=== PATIENT | male | born 1955 | race Caucasian/White ===

== ENCOUNTER → 2018-04-05 09:23 | Outpatient (REF) | payer MEDICAID, SELFPAY ==
[2018-04-06 00:09] LABS: Anion Gap 11.6 mmol/L (3-11); BUN 10 mg/dL (7-18); CO2 26.4 mmol/L (21.0-32.0); CREATININE 0.83 mg/dL (0.70-1.30); Calcium 8.8 mg/dL (8.5-10.1); Chloride 103 mmol/L (98-107); Glucose 106 mg/dL (70-100); Potassium 4.6 mmol/L (3.5-5.1); Sodium 141 mmol/L (136-145)
[2018-04-07 08:50] LABS: PSA, Screening 3.4 ng/ml (0-4.5)
== END ==
LOC: NCHCN 09:23
PROVIDERS: PCP Specialist/Technologist Athletic Trainer; Visit Provider Specialist/Technologist Athletic Trainer
DX: Z12.5 Encounter for screening for malignant neoplasm of prostate (principal); R97.20 Elevated prostate specific antigen [PSA]; I10 Essential (primary) hypertension
CPT/HCPCS: 80048; 84153

== ENCOUNTER 2018-04-11 02:44 | Emergency (ER) | payer MEDICAID, SELFPAY ==
[2018-04-11 02:48] VITALS: BP 132/80; PULSE 79; RESP 18; TEMP 36.6; O2SAT 98
--- NOTE | 2018-04-11 03:07 | ED.GENADUL_ITS ---
Disposition Clinical Impression: Acute radial nerve palsy of right upper extremity Disposition: HOME Condition: Good Instructions: Radial Nerve Palsy (ED) Additional Instructions: Wear the wrist splint to help maintain hand in neutral position. Follow-up with primary care this week. You will likely benefit from physical therapy. Return to ED if any progressive neurologic changes, headaches, other concerns. Referrals: Flex Elizalde [Primary Care Provider] - Medical Decision Making - Medical Decision Making Patient appears to have a right radial nerve palsy likely from compression of the radial nerve at the level of the upper arm when he was sleeping. He has right wrist drop and right hand/finger extensor weakness. Flexor components are normal. Bicep and tricep is normal. There is no sensory deficits. Patient will be placed in a wrist splint to help maintain wrist in neutral position. Referred to primary care and neurology for follow-up. Will likely need physical therapy but this should get better over time and is likely related to compression of the radial nerve. History of Present Illness - General Chief complaint: Orthopedic Stated complaint: HAND PROB Time Seen by Provider: 04/11/18 03:04 Source: patient Mode of arrival: ambulatory Limitations: no limitations - History of Present Illness Initial comments: Patient presents to ED with inability to use his right hand normally. He went to bed around 10 PM. He woke up and realized that he had been lying on his arm. He has not been able to use his right hand normally since waking up. He does not have any numbness or tingling. He has no other associated neurological symptoms. He is having no pain. He is right-hand dominant. He came in for evaluation thinking he might be having a stroke. - Related Data Lisinopril 5 mg PO DAILY 01/03/15 Metformin HCl [Metformin HCl ER] 1 tab PO DAILY 04/11/18 Allergies Allergy/AdvReac Type Severity Reaction Status Date / Time No Known Allergies Allergy Unverified 04/11/18 02:48 Review of Systems Constitutional: denies: chills, diaphoresis, fever Eyes: denies: vision change ENT: denies: congestion Respiratory: denies: cough, shortness of breath Cardiovascular: denies: chest pain Gastrointestinal: denies: abdominal pain, nausea, vomiting Genitourinary: denies: dysuria, hematuria Musculoskeletal: denies: back pain, arthralgia, myalgia Skin: denies: rash Neurological: weakness. denies: headache, numbness, paresthesias, abnormal gait Past Medical History - Past Medical History Medical history: diabetes, hypertension Surgical history: no surgical history - Social History Smoking status: former smoker General Exam - General Limitations: no limitations General appearance: alert, in no apparent distress - Head Head exam: Present: atraumatic, normocephalic - Eye Eye exam: Present: PERRL, EOMI, conjunctival injection - Extremities Exam Extremities exam: Present: normal inspection. Absent: tenderness, calf tenderness - Neurological Exam Neurological exam: Present: alert, oriented X3, CN II-XII intact, normal gait, motor sensory deficit (Right wrist drop with associated right hand/fingers extensor weakness. 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 Wrist flexion is normal. Bicep and tricep strength is normal. Left arm is normal. Lower extremities normal. No sensory deficits or changes.) - Psychiatric Psychiatric exam: Present: normal affect, normal mood - Skin Skin exam: Present: warm, dry, intact. Absent: rash Course Vital Signs - 24 hr 04/11/18 02:48 Temperature 97.9 F Pulse 79 Respiratory 18 Rate Blood Pressure 132/80 Pulse Oximetry 98
== END 2018-04-11 03:20 | disposition home or self-care (01) ==
PROVIDERS: Emergency Provider Emergency Medicine; PCP Specialist/Technologist Athletic Trainer
DX: G56.31 Lesion of radial nerve, right upper limb (principal); E11.9 Type 2 diabetes mellitus without complications; Z79.84 Long term (current) use of oral hypoglycemic drugs; I10 Essential (primary) hypertension
CPT/HCPCS: 29125; 99283; L3908

== ENCOUNTER 2018-07-13 09:01 | Outpatient (REF) | payer MEDICAID, SELFPAY ==
[2018-07-13 22:43] LABS: Cholesterol 154 mg/dL (50-200); HDL Cholesterol 38 mg/dL (40-60); LDL CHOLESTEROL 109 mg/dL (<100); Triglyceride 61 mg/dL (30-150)
== END 2018-07-13 09:21 ==
LOC: NCHCN 09:01
PROVIDERS: PCP Specialist/Technologist Athletic Trainer; Visit Provider Specialist/Technologist Athletic Trainer
DX: R73.09 Other abnormal glucose (principal); Z00.00 Encounter for general adult medical examination without abnormal findings
CPT/HCPCS: 80061; 83721

== ENCOUNTER 2019-09-13 10:50 | Outpatient (REF) | payer MEDICAID, SELFPAY ==
[2019-09-13 22:24] LABS: BUN 16 mg/dL (7-18); CREATININE 0.78 mg/dL (0.70-1.30); Calcium 9.3 mg/dL (8.5-10.1); Calculated LDL 109 mg/dL; Chloride 106 mmol/L (98-107); Cholesterol 161 mg/dL (<200); Glucose 114 mg/dL (74-106); HDL Cholesterol 41 mg/dL (40-60); Potassium 4.8 mmol/L (3.5-5.1); Sodium 143 mmol/L (136-145); Triglyceride 57 mg/dL (<150)
[2019-09-17 10:22] LABS: PSA, Screening 3.5 ng/mL (0.0-4.5)
== END 2019-09-13 11:10 ==
LOC: NCHCN 10:50
PROVIDERS: PCP Specialist/Technologist Athletic Trainer; Visit Provider Nurse Practitioner Family
DX: I10 Essential (primary) hypertension (principal); R73.09 Other abnormal glucose; Z12.5 Encounter for screening for malignant neoplasm of prostate; Z00.00 Encounter for general adult medical examination without abnormal findings
CPT/HCPCS: 80048; 80061; 84153

== ENCOUNTER 2020-05-09 15:19 | Outpatient (REF) | payer MEDICAID, SELFPAY ==
[2020-05-09 20:04] LABS: ALT 23 U/L (16-63); AST 13 U/L (15-37); Anion Gap 7.6 mmol/L (3-11); BUN 20 mg/dL (7-18); CO2 27.4 mmol/L (21.0-32.0); CREATININE 0.91 mg/dL (0.70-1.30); Calcium 8.8 mg/dL (8.5-10.1); Chloride 106 mmol/L (98-107); Glucose 132 mg/dL (74-106); HDL Cholesterol 40 mg/dL (40-60); LDL CHOLESTEROL 86 mg/dL (<100); Potassium 4.7 mmol/L (3.5-5.1); Sodium 141 mmol/L (136-145)
[2020-05-09 20:18] LABS: Creatine Kinase 74 U/L (39-308)
== END 2020-05-09 15:39 ==
LOC: NCHCN 15:19
PROVIDERS: PCP Specialist/Technologist Athletic Trainer; Visit Provider Nurse Practitioner Family
DX: E11.9 Type 2 diabetes mellitus without complications (principal); I10 Essential (primary) hypertension
CPT/HCPCS: 80048; 82550; 83721; 83718; 84450; 84460

== ENCOUNTER 2021-01-22 10:23 | Outpatient (REF) | payer MEDICAID, SELFPAY ==
[2021-01-22 15:09] LABS: ALT 38 U/L (16-63); AST 20 U/L (15-37); BUN 16 mg/dL (7-18); CREATININE 0.9 mg/dL (0.70-1.30); Calcium 8.8 mg/dL (8.5-10.1); Calculated LDL 91 mg/dL (<100); Chloride 101 mmol/L (98-107); Cholesterol 148 mg/dL (<200); Glucose 112 mg/dL (74-106); HDL Cholesterol 37 mg/dL (40-60); Potassium 4.6 mmol/L (3.5-5.1); Sodium 140 mmol/L (136-145); Triglyceride 100 mg/dL (<150)
[2021-01-22 15:20] LABS: Creatine Kinase 72 U/L (39-308)
== END 2021-01-22 10:24 | disposition home or self-care (01) ==
LOC: NCHCN 10:23
PROVIDERS: PCP Specialist/Technologist Athletic Trainer; Visit Provider Nurse Practitioner Family
DX: I10 Essential (primary) hypertension (principal); E11.9 Type 2 diabetes mellitus without complications; R97.20 Elevated prostate specific antigen [PSA]; Z12.5 Encounter for screening for malignant neoplasm of prostate
CPT/HCPCS: 80048; 80061; 82550; 84153; 84450; 84460

== ENCOUNTER 2022-01-25 08:34 | Outpatient (REF) | payer MEDICARE, MEDICAID, SELFPAY ==
[2022-01-25 16:00] LABS: Hemoglobin A1C 6.6 % (<5.7)
[2022-01-25 17:11] LABS: ALT 43 U/L (16-63); AST 19 U/L (15-37); Alkaline Phosphatase 71 U/L (46-116); Anion Gap 9.7 mmol/L (3-11); BUN 17 mg/dL (7-18); Bilirubin, Total 0.6 mg/dL (0.2-1.0); CO2 26.3 mmol/L (21.0-32.0); CREATININE 0.9 mg/dL (0.70-1.30); Calcium 8.8 mg/dL (8.5-10.1); Calculated LDL 96 mg/dL (<100); Chloride 103 mmol/L (98-107); Cholesterol 157 mg/dL (<200); Glucose 139 mg/dL (74-106); HDL Cholesterol 41 mg/dL (40-60); Potassium 5.1 mmol/L (3.5-5.1); Sodium 139 mmol/L (136-145); Total Protein 7.4 g/dL (6.4-8.2); Triglyceride 102 mg/dL (<150)
[2022-01-25 17:40] LABS: Creatine Kinase 60 U/L (39-308)
[2022-01-25 22:48] LABS: PSA, Screening 5.3 ng/mL (<=4.5)
== END 2022-01-25 08:35 | disposition home or self-care (01) ==
LOC: NCHCN 08:34
PROVIDERS: PCP Specialist/Technologist Athletic Trainer; Visit Provider Nurse Practitioner Family
DX: I10 Essential (primary) hypertension (principal); E11.9 Type 2 diabetes mellitus without complications; R97.20 Elevated prostate specific antigen [PSA]; Z12.5 Encounter for screening for malignant neoplasm of prostate; Z00.00 Encounter for general adult medical examination without abnormal findings
CPT/HCPCS: 80053; 80061; 82550; 84153; 83036

== ENCOUNTER 2022-11-16 14:30 | Inpatient (IN) | payer MEDICARE, MEDICAID, SELFPAY ==
[2022-11-16] VITALS (8 sets, daily range): BP systolic 109–135; BP diastolic 50–76; PULSE 59–90; RESP 10–18; TEMP 36.2–36.4; O2SAT 91–98; BMI 39.7
--- NOTE | 2022-11-16 14:30 | DI.RAD_ITS ---
Exam(s) XR CHEST 1V IN DI DEPT EXAM: XR CHEST 1V IN DI DEPT CLINICAL HISTORY: R hip pain, fall TECHNIQUE: 2D digital imaging was performed. COMPARISON: No exams were available for comparison FINDINGS: The exam is under penetrated. LUNGS: Suboptimally inflated but clear. No pleural abnormality seen. HEART: Normal size. AORTA: Normal diameter. BONES: Unremarkable for age. Soft tissues: Unremarkable. IMPRESSION: No acute findings. DATA REPOSITORY: RADIATION DOSE DELIVERED:
--- NOTE | 2022-11-16 14:30 | DI.RAD_ITS ---
Exam(s) XR FEMUR RT XR HIP RT COMPLETE AP PELVIS EXAM: XR HIP RT COMPLETE AP PELVIS INDICATION: Fall, R hip/femur pain and deformity. COMPARISON: CR XR FEMUR RT from 11/16/2022 TECHNIQUE: 2D digital imaging was performed. Three views. FINDINGS: Comminuted fracture through the intertrochanteric region of the femur. There is separation of the ma in fracture fragments more than a shaft width. Lesser trochanter is fractured as a separate fragment . Greater trochanter or also separate fragment. No additional fracture seen distally in the femur o r elsewhere in the pelvis. SI joints and pubic symphysis unremarkable. Degenerative changes of the hips, left greater than right. IMPRESSION: Comminuted intertrochanteric fracture of the right femur DATA REPOSITORY: RADIATION DOSE DELIVERED:
--- NOTE | 2022-11-16 14:37 | ED.GENADUL_ITS ---
Discharge Plan Disposition Patient Disposition: Admit to [facility] Condition: Serious Discharge Details Clinical Impression: Closed right hip fracture Attending Provider: Juan Ballard Primary Care Provider: Flex Elizalde ED Provider: Zachariah Cueto Medical Decision Making This is a healthy 67-year-old male who stopped to help someone extract their car from a snow bank. He slipped and fell on icy ground, landing on his right hip. He had immediate pain and was unable to ambulate. EMS was called and the patient transported to the ER. He arrives with a deformed and tender right proximal femur, with leg length noted to be shortened. Patient IV access established, parenteral analgesia admitted, screening labs obtained he is referred for x-ray. The patient has a comminuted right intertrochanteric hip fracture. I discussed the case with Dr. Ballard the patient will be admitted for operative repair. HPI General Mode of arrival: EMS . Date/Time Provider Initiated Documentation: 11/16/22 14:59 . Limitations to Documentation: no limitations . Information obtained by: patient and EMS . History of Present Illness 67 year old M presents to the emergency department with the chief complaint of Slipped and fell on icy ground, right hip/thigh pain, described as moderate, Quality is described as dull and constant, and is localized to the right and lower extremity. Patient reports no radiation. Patient started experiencing this minute(s) and it has been constant. Rest improves symptom(s), Movement worsens symptoms . Patient notes denies chest pain, shortness of breath, syncope and weakness. Patient did receive the following treatments prior to arrival, none Related Data Home Medications Medication Instructions Recorded Confirmed metformin 750 mg tablet,extended 1 tab PO DAILY 04/11/18 11/16/22 release 24 hr lisinopril 20 mg tablet 20 mg PO DAILY 11/16/22 11/16/22 Allergies Allergy/AdvReac Type Severity Reaction Status Date / Time No Known Allergies Allergy Unverified 04/11/18 02:48 Review of Systems Narrative: 6 systems reviewed and otherwise negative. No syncope, no head/neck/chest pain. Otherwise well. [facility] All Active Problems (Updated 11/16/22 @ 17:15 by Juan Ballard MD) Closed fracture of proximal end of right femur (Acute) Colon cancer screening (Acute) Surgical History Orbital fracture repair right closed Social History Smoking/Tobacco Use Status: Former Tobacco Use Smoking risk assessment performed?: Yes Drug use: Never Do you feel safe at home: Yes Do you feel safe in your relationship?: Yes Exam Narrative Exam Narrative: GEN: awake, alert, oriented 3. Pleasant, well groomed, interactive. HEAD: Normocephalic, atraumatic ENT: Mucous membranes moist, oropharynx unremarkable, External ear exam unremarkable EYES: PERRL, EOMI NECK: Full ROM, no NOMAN, no menigismus CHEST/RESP: Nontender, clear to auscultation bilateral, no wheeze/rhonchi/rales CARDIOVASCULAR: RRR, no murmur, rub alfonso. 2+ Rad pulse bilateral ABDOMEN: Soft, nontender, no mass. +Bowel sounds EXT: Right anterolateral proximal thigh is tense and swollen with tenderness present on palpation. Tenderness with internal/external rotation of the right hip. Distal motor and sensory is intact. Neuro: Grossly normal neurologic exam, conversant, interactive. Psych: Speech fluent, thoughts congruent, affect normal
[2022-11-16] MEDS: HYDROmorphone 2 MG/ML SYR 1 MG IVP ×3 (15:08→16:53)
[2022-11-16 15:11] LABS: Abs Immature Grans 0.08 10^3/uL (0.0-0.06); Absolute Basophil Count 0.08 10^3/uL (0.0-0.2); Absolute Eosinophil Count 0.15 10^3/uL (0.0-0.7); Absolute Lymphocyte Count 1.57 10^3/uL (1.2-3.4); Absolute Monocyte Count 1.18 10^3/uL (0.1-0.8); Absolute Neutrophil Count 12.32 10^3/uL (1.2-6.7); Basophils % 0.5; HCT 43.7 % (40.0-50.0); HGB 15.3 g/dL (13.5-17.5); Immature Grans % 0.5; Lymphocytes % 10.2; MCH 30.8 pg (27.0-33.0); MCV 88 fL (80-95); MPV 10.7 fL (8.0-11.0); Monocytes % 7.7; Neutrophils % 80.1; Platelet Count 237 10^3/uL (130-400); RBC 4.97 10^6/uL (4.36-5.78); RDW 12.9 % (11.8-14.1); RDW-SD 41.5 fL; WBC 15.38 10^3/uL (4.4-10.8)
[2022-11-16 15:27] LABS: PTT Activated 22.9 sec (21.5-31.9)
[2022-11-16 15:28] LABS: ALT 38 U/L (16-63); AST 15 U/L (15-37); Albumin 3.9 g/dL (3.4-5.0); Alkaline Phosphatase 67 U/L (46-116); BUN 16 mg/dL (7-18); Bilirubin, Total 0.5 mg/dL (0.2-1.0); CREATININE 0.9 mg/dL (0.70-1.30); Chloride 101 mmol/L (98-107); Estimated GFR 94.19 (mL/min/1.73m2); Glucose 151 mg/dL (74-106); Magnesium 1.9 mg/dL (1.8-2.4); Potassium 4.3 mmol/L (3.5-5.1); Sodium 138 mmol/L (136-145); Total Protein 7.4 g/dL (6.4-8.2); Troponin I < 50 ng/L (<or=60)
--- NOTE | 2022-11-16 16:00 | RT.EKG_ITS ---
APPROVED REPORT Exam: Resting ECG Reason for Exam: Hip pain, pre-op Patient Location: E HR:59 bpm ECG Measurements Heart Rate 59 AXIS TX 184 P 15 QRSd 96 QRS -23 QT 429 T 2 QTc 426 Conclusion Sinus bradycardia...rate< 60
--- NOTE | 2022-11-16 16:42 | W.ANESPRE ---
General Info Date of Service Date Performed: 11/16/22 Height: 5 ft 11 in Weight: 129.3 kg Body Mass Index (BMI): 39.7 Surgical Procedure: Operation Date: 11/16/22 17:20 Proposed Procedure Side Surgeon p Femur IM Nailing Right Juan Ballard MD Meds Allergies and Home Medications Allergies Allergy/AdvReac Type Severity Reaction Status Date / Time No Known Allergies Allergy Unverified 04/11/18 02:48 Home Medication Medication Instructions Recorded lisinopril 5 mg tablet 5 mg PO DAILY 01/03/15 metformin 750 mg tablet,extended 1 tab PO DAILY 04/11/18 release 24 hr Current Visit Medications: Current Medications Generic Name Dose Route Start Last Admin Trade Name Freq PRN Reason Stop Dose Admin Hydromorphone HCl 1 mg 11/16/22 14:35 11/16/22 15:31 Hydromorphone 2 Mg/Ml Syr IVP 1 mg PRN PRN Administration Sodium Chloride 1,000 mls @ 150 mls/hr 11/16/22 14:45 Saline 1000ml Bag IV INFUSION ABEBA IV Miscellaneous Supplies 1 each 11/16/22 14:45 Iv Access IV DIRECTED ABEBA Sodium Chloride 0 ml 11/16/22 14:35 Normal Saline Flush 10 Ml Syr IVP PRN PRN PFSH Active Problems Active Problems: Problem Status Onset Code Colon cancer screening Z12.11 Closed right hip fracture S72.001A Surgical History Surgical History Orbital fracture repair right closed Tobacco Smoking/Tobacco Use Status: Former Tobacco Use Substance Use Substance use: Never Vital Signs and Lab Results Vital Signs Most Recent Vital Signs in EMR: Most Recent Vital Signs Temp Pulse Resp BP Pulse Ox 36.4 C 59 L 16 135/70 98 11/16/22 14:35 11/16/22 14:35 11/16/22 14:35 11/16/22 14:35 11/16/22 14:35 Lab Results 11/16/22 15:00 11/16/22 15:00 Blood Type / Crossmatch: Patient ABO/Rh A Positive 11/16/22 Antibody Screen NEGATIVE 11/16/22 Complete Blood Count: White Blood Count 15.38 10^3/uL (4.4-10.8) H 11/16/22 15:00 Red Blood Count 4.97 10^6/uL (4.36-5.78) 11/16/22 15:00 Hemoglobin 15.3 g/dL (13.5-17.5) 11/16/22 15:00 Hematocrit 43.7 % (40.0-50.0) 11/16/22 15:00 Platelet Count 237 10^3/uL (130-400) 11/16/22 15:00 Complete Metabolic Panel: Sodium 138 mmol/L (136-145) 11/16/22 15:00 Potassium 4.3 mmol/L (3.5-5.1) 11/16/22 15:00 Chloride 101 mmol/L (98-107) 11/16/22 15:00 Carbon Dioxide 33.0 mmol/L (21.0-32.0) H 11/16/22 15:00 BUN 16 mg/dL (7-18) 11/16/22 15:00 Creatinine 0.9 mg/dL (0.70-1.30) 11/16/22 15:00 Est GFR (CKD-EPI 2020) 94.19 (mL/min/1.73m2) 11/16/22 15:00 Magnesium 1.9 mg/dL (1.8-2.4) 11/16/22 15:00 Calcium 9.0 mg/dL (8.5-10.1) 11/16/22 15:00 Albumin 3.9 g/dL (3.4-5.0) 11/16/22 15:00 Glucose 151 mg/dL (74-106) H 11/16/22 15:00 Liver Function Panel: Alanine Aminotransferase (ALT/SGPT) 38 U/L (16-63) 11/16/22 15:00 Aspartate Amino Transf (AST/SGOT) 15 U/L (15-37) 11/16/22 15:00 Coagulation Panel: INR International Normalized Ratio 1.0 (0.9-1.1) 11/16/22 15:00 Prothrombin Time 10.0 sec (9.3-11.0) 11/16/22 15:00 Activated Partial Thromboplast Time 22.9 sec (21.5-31.9) 11/16/22 15:00 Cardiac Panel: Troponin I < 50 ng/L (<or=60) 11/16/22 Arterial Blood Gas: No Data to Display Venous Blood Gas: No Data to Display Pancreas Panel: No Data to Display Thyroid Panel: No Data to Display Infectious Disease: No Data to Display Blood Cultures: No Data to Display Toxicology Panel: No Data to Display Imaging and Studies Imaging and Studies Study information below may be from another EMR and interpreted by another provider. Please see original notes in EMR for more complete details. EKG Summary: 11/25: sinus satish. Anesthesia Assessment and Plan Anesthesia History Personal History: No History of Anesthesia Complications Family History: No Family History of Anesthesia Complications Exercise Tolerance Exercise Tolerance: Metabolic Equivalents>4 Cardiac & Pulmonary Exam Cardiac Exam: Normal S1/S2 Heart Sounds Pulmonary Exam: Clear Bilateral Breath Sounds Implantable Cardiac Device Does patient have a Pacemaker or an ICD?: No Airway Exam Known Difficult Airway: No Mallampati Class: 3 Mouth Opening: Narrow (< 3cm) Thyromental Distance: Greater than 3 cm Neck Range of Motion: Limited ROM Neck Circumference: Thick Teeth Condition: Generalized Poor Dentition, Removable Dentures/Plates Upper and Removable Dentures/Plates Lower ASA Classification ASA Score: ASA 2 Emergency Case?: Yes NPO Status NPO Status: NPO Clears >2 hours, Solids >8 hours Anesthesia Plan Resuscitation Status: Full Code Anesthesia Technique: General Anesthesia Airway Planned: Endotracheal Tube Monitors Used: Standard Monitors Preoperative Comments:: 67 yo male for IM nailing of femur. in the ED, hydromorphone from pain. Sig PMHx: former smoker, HTN, DM. Plan: DONNELL.
--- NOTE | 2022-11-16 17:11 | W.ORTHOCONSU ---
Date of service: 11/16/22 Time of Service: 17:11 History of Present Illness History of Present Illness Chief Complaint: Right Femur Fracture Narrative: This is a 67-year-old active male who was stopping to help a person who was stuck in the snow. He slipped and fell directly onto the right side. Immediate pain, deformity the leg, and was unable to ambulate. He was brought to the emergency department by EMS where he was diagnosed with a significantly shortened and displaced and comminuted proximal femur fracture on the right side. He reports pain about the right hip. However, he denies pain elsewhere. He denies loss of conscious. He denies shortness of breath or chest pain. He denies any prefall lightheadedness. He denies preinjury pain in the right leg. He reports only hypertension and diabetes as his medical history. He is on no blood thinners. He last ate around 8 AM this morning. Consults Consult date: 11/16/22 Requesting physician: Zachariah Cueto Consult Reason Proximal femur fracture, right Assessment and Plan Assessment and plan (1) Closed fracture of proximal end of right femur: Status: Acute Assessment and plan: Kranthi is a 67-year-old who suffered a direct trauma to his right leg resulting in a comminuted and displaced proximal femur fracture. Given the significant displacement and his discomfort with this fracture I did offer surgical treatment. He is n.p.o. since 8 AM and thus we could proceed this evening to fix this to help treat pain and expedite his recovery. This fracture pattern is difficult given its subtrochanteric orientation yet multiple fracture fragments. This mixed picture can make reduction difficult. I explained that I would fix this with an intramedullary blake. However, would likely need to perform a more open approach to reduce the fracture fragments. He would be able to weight-bear following the surgery but his total recovery time will be many months. I discussed the risk of the procedure to include bleeding, infection, pain, stiffness, damage nerves and vessels, damage to muscle and tendons, malunion, nonunion, however prominence, hardware failure, malrotation, shortening, need for repeat procedures. Despite these risks, he elected to proceed. Review of Systems All systems reviewed & are unremarkable except as noted in HPI and below PFSH All Active Problems (Updated 11/16/22 @ 17:15 by Juan Ballard MD) Closed fracture of proximal end of right femur (Acute) Colon cancer screening (Acute) Surgical History Orbital fracture repair right closed Social History Smoking/Tobacco Use Status: Former Tobacco Use Smoking risk assessment performed?: Yes Drug use: Never Do you feel safe at home: Yes Do you feel safe in your relationship?: Yes Exam Const General: cooperative, healthy appearing, no acute distress and well developed Nutritional Appearance: average body habitus Orientation: alert, awake and oriented x3 HENMT Head: normal to inspection, normocephalic and atraumatic Resp Auscultation: clear to auscultation bilaterally Cardio Rate: regular rate Rhythm: regular rhythm Extrem Other: Evaluation of the right lower extremity shows a flexed and externally rotated limb. He is unable to tolerate any attempted motion about the right hip. He has no pain to palpation about the foot, ankle, knee. However, he does have pain to palpation about the midportion of the femur and proximal. There is no skin breakdown. There is no sign of open injury. No pain with pelvic compression. Sensation intact light touch over the deep and superficial peroneal nerve and tibial nerve. Palpable DP and PT pulse. Results Last Vital Signs Temp 36.4 C 11/16/22 14:35 Pulse 59 L 11/16/22 14:35 Resp 16 11/16/22 14:35 BP 135/70 11/16/22 14:35 Pulse Ox 98 11/16/22 14:35 Labs 11/16/22 15:00 11/16/22 15:00 Labs: Laboratory Results - last 24 hr 11/16/22 11/16/22 11/16/22 15:00 15:00 15:00 WBC 15.38 H RBC 4.97 Hgb 15.3 Hct 43.7 MCV 88 MCH 30.8 MCHC 35.0 RDW 12.9 Plt Count 237 MPV 10.7 Immature Gran % 0.5 Neutrophils % 80.1 Lymphocytes % 10.2 Monocytes % 7.7 Eosinophils % 1.0 Basophils % 0.5 Nucleated RBC % 0.0 Absolute Neutrophils 12.32 H Absolute Lymphocytes 1.57 Absolute Monocytes 1.18 H Absolute Eosinophils 0.15 Absolute Basophils 0.08 PT 10.0 INR 1.0 APTT 22.9 Sodium 138 Potassium 4.3 Chloride 101 Carbon Dioxide 33.0 H Anion Gap 4.0 BUN 16 Creatinine 0.9 Est GFR (CKD-EPI 2020) 94.19 Glucose 151 H Calcium 9.0 Magnesium 1.9 Total Bilirubin 0.5 AST 15 ALT 38 Alkaline Phosphatase 67 Troponin I < 50 Total Protein 7.4 Albumin 3.9 Patient ABO/Rh Antibody Screen 11/16/22 15:23 WBC RBC Hgb Hct MCV MCH MCHC RDW Plt Count MPV Immature Gran % Neutrophils % Lymphocytes % Monocytes % Eosinophils % Basophils % Nucleated RBC % Absolute Neutrophils Absolute Lymphocytes Absolute Monocytes Absolute Eosinophils Absolute Basophils PT INR APTT Sodium Potassium Chloride Carbon Dioxide Anion Gap BUN Creatinine Est GFR (CKD-EPI 2020) Glucose Calcium Magnesium Total Bilirubin AST ALT Alkaline Phosphatase Troponin I Total Protein Albumin Patient ABO/Rh A Positive Antibody Screen NEGATIVE Imaging Imaging Studies: X-ray of the right femur shows a comminuted proximal femur fracture. There is significant shortening and varus displacement. There appears to be for primary portions with a trochanteric fracture, head neck fracture, lesser trochanter fracture, and femoral shaft. No signs of underlying bone disease or suspicious lesions.
--- NOTE | 2022-11-16 17:15 | DI.RAD_ITS ---
Exam(s) XR HIP RT IN OR EXAM: XR HIP RT IN OR CLINICAL HISTORY: RIGHT FEMUR FX TECHNIQUE: 2D and realtime digital imaging was performed. CONTRAST MATERIAL: Refer to procedure report. COMPARISON: CR XR FEMUR RT from 11/16/2022 FINDINGS: Fluoroscopy was provided for Dr. Ballard during the performance of a reduction and internal fixatio n of femoral fracture. Please refer to the procedure report for complete details. Ka,r=58.0 mGy IMPRESSION: RADIATION DOSE DELIVERED:
[2022-11-16] MEDS: Tranexamic Acid 1,000 MG/10 ML VIAL 1000 MG (17:52)
[2022-11-16] MEDS: Lactated Ringers 1,000 ML 30 ML IV (18:05)
[2022-11-16 18:37] LABS: Lab Add On Test DONE
[2022-11-16 19:29] LABS: Hemoglobin A1C 6.5 % (<5.7)
--- NOTE | 2022-11-16 20:25 | ROE_ITS ---
Date of service: 11/16/22 Time of Service: 20:25 Operative Note Operative Note DATE OF PROCEDURE: 11/16/22 PRE-OP DIAGNOSIS: Comminuted Proximal Femur Fracture, RIGHT POST-OP DIAGNOSIS: same PROCEDURE: Right Open Reduction and Intramedullary Fixation of Proximal Femur Fracture SURGEON: Juan Ballard MACHINE REPAIRMAN: Mary Kay Rossi ANESTHESIA TYPE: General LMA/ETT Refer to Anesthesia Record ESTIMATED BLOOD LOSS: 200 PATHOLOGY: none sent COMPLICATIONS: None Patient was transported to: PACU Patient's condition: stable Implants: Depuy-Synthes TFNA 11mm x 420mm Indications: Kranthi is a 67 year old male who presented to the Emergency Department after a fall. X-rays confirmed the diagnosis of a comminuted fracture of the proximal femur. I reviewed the possible treatment options and given the fracture of the femur, I recommended operative fixation. I discussed the technical details of the surgery. I reviewed the risks such as bleeding, infection, pain, stiffness, malunion, nonunion, hardware prominence, hardware faiilure, malrotation, avascular necrosis, blood clot. Despite these risks, he agreed to proceed. Findings: There was a fracture of the proximal femur which had both intertrochanteric and subtrochanteric fracture patterns along with a free a lesser trochanteric piece. Open reduction was performed through the lateral aspect utilizing direct manipulation of the fracture fragments along with Verbrugge clamp and collinear clamp. This was able to obtain adequate reduction and intramedullary nail was placed. Procedure Description: Kranthi was taken back to the operating room. A general anesthetic was then administered. The feet were wrapped with cast padding and Coban and then placed into the boot liners and then into the boots. Care was taken to protect the skin and make sure the heels were fully down and the boots were stable. The patient was then positioned onto the HANA table. Both legs were held in a neutral position. SCDs were applied. The patient was then slid down onto a perineal post. The arm of the operative side was then placed across the chest and secured. The nonoperative leg was scissored. A gentle reduction was then performed with traction and internal rotation and gentle external manipulation. This was unable to obtain satisfactory reduction. Prophylactic antibiotics in the form of Cefazolin were administered. 1g of Tranxemic Acid was given intravenously within 30 minutes of incision. The right leg was then prepped with Chloraprep and draped in a standard fashion with shower-curtain type drape with Iodine impregnated skin protection. A timeout to confirm correct identity, side and site, procedure, allergies, anesthesia, and medical concerns was performed. With fluoroscopy for guidance, a longitudinal incision was made over the proximal lateral aspect of the right femur. This was taken down sharply through the skin and subcutaneous tissues. The IT band was incised. The vastus lateralis was split in line with its fibers. Using a Sanz elevator was able to split these fibers proximally distally down to the level of the femur. There is a fracture hematoma which was evacuated. The fracture fragments were able to be palpated. There was displacement both with the AP and in the lateral direction. These fracture fragments were then manipulated. I utilized both the right manipulation with Homans and Corinna to help mobilize the pieces. It was quite challenging to obtain reduction in the sagittal plane as well as the coronal plane. The proximal aspect of the distal shaft fragment wanted to stay in a posterior position proximally. Eventually, I was able to elevate the shaft fragment and depress the trochanteric fragment and hold this with of her bruits clamp in the sagittal plane. I then utilized a collinear clamp in the coronal plane to help compress that deformity. Each 1 had to be loosened slightly and work together in order to obtain reduction in the 2 planes. Once his reduction was adequate, attention was then turned to placement of the intramedullary nail. Using fluoroscopy, the starting point was marked over the lateral hip, proximal to the tip of the greater trochanter. A 3cm incision was made through skin and the fascia of the gluteus musculature until the tip of the trochanter was palpable. The starting wire was placed onto the tip, just slightly on the media aspect, and centered in the AP plane. Using a sandra, the starting guide wire was buried into the bone. A lateral x-ray confirmed appropriate position and the guidewire was advanced to the level of the lesser trochanter. With a tissue protector, the proximal femur was opened with the opening reamer. A ball-tipped guide wire was inserted into the femur and advanced to the distal extent. AP and lateral fluoroscopic images confirmed appropriate positioning in the distal femur. The length was measured as 420mm. A Synthes TFNA [id number] nail was selected and opened on the back table. The femur was reamed sequentially from 9mm to 12.5mm. The nail was assembled to the aiming arm on the back table and confirmed to be aligned with the triple sleeve for blade insertion. Using manual force the nail was advanced into the femur. A few light mallet blows advanced the nail to its appropriate position. The triple sleeve was inserted through the targeting arm and the skin, soft tis gera, and IT band was then incised. The triple sleeve was advanced down to the lateral femur. A guidewire was advanced into the femoral head where it was noted to be centered. A lateral x-ray was used to confirm centered positioning on the lateral. Happy with the length of the guidewire, this was measured. A 110mm helical blade was opened. The path of the blade was reamed with a tapered reamer to appropriate depth. The helical blade was malletted into position and confirmed to be appropriately located on fluoroscopy. The set screw was advanced to a half turn shy of fully tightened, allowing for the helical blade to slide. The fracture was compressed before removing the targeting device. The targeting device was removed. AP and lateral x-rays of both the hip and the knee confirmed appropriate positioning within the femur and with good alignment of the fracture. The c-arm was moved to the knee where perfect circles were obtained for distal screw placement. The skin and deeper tissues were incised down to the femur. The drill was taken through the femur, nail, and opposite cortex. This was measured. The screw was inserted with good purchase and bite. Lateral x-ray showed the screw was through the nail and then an AP image confirmed appropriate length. Final x-rays were obtained. The wounds were thoroughly irrigated. A cocktail consisting of 123mg of Ropivacaine, 0.25mg of Epinephrine, 0.04mg of Clonidine, and 15mg of Ketorolac, diluted to 50cc was injected throughout the tissues. The deep fascia of the proximal two wounds was reapproximated with a 0 Vicryl. The deep tisses were closed with a 2-0 Vicryl and the skin was closed with a running subcuticular 3-0 Monocryl. At the end of the case, all counts were correct. Kranthi tolerated the procedure well without known complication and was taken to the PACU for recovery. Physical therapy will start post-operatively, weigh-bearing as tolerated with assistive devices. Anticoagulation will start within 12-24 hours. 3 doses of post-operative antibitiocis for prophylaxis will be administered.
--- NOTE | 2022-11-16 21:26 | W.ANESPOSTOP ---
Postoperative Evaluation Date, Time and Location Date Performed: 11/16/22 Time Performed: 21:26 Patient Location: PACU Vital Signs Most Recent Imported Vital Signs: Most Recent Vital Signs Temp Pulse Resp BP Pulse Ox 36.4 C L 90 14 118/55 L 97 11/16/22 20:58 11/16/22 20:58 11/16/22 20:58 11/16/22 20:58 11/16/22 20:58 Pain Score Most Recent Pain Score: Most Recent Pain Score Pain Level [Right Hip] 2 11/16/22 14:49 Pain Level 0 11/16/22 20:58 Assessment Mental Status: Arousable with meaningful communication Airway and Respiratory Function: Patent airway with normal (patient baseline) respiratory exam Cardiovascular Function: Hemodynamically Stable Hydration Status: Adequately Hydrated Nausea & Vomiting: No Nausea or Vomiting Pain: Pain is tolerable per patient Peripheral Nerve Block: Patient did not receive a nerve block
[2022-11-16] MEDS: ceFAZolin 1 GM/50 ML BAG IVPB (21:52)
[2022-11-16] MEDS: Normal Saline Flush 10 ML SYR IVP (21:52)
[2022-11-16 22:09] LABS: Source Nasal/Nares
[2022-11-16 22:42] LABS: COVID-19 PCR Negative (Negative)
[2022-11-17] MEDS: Refresh PLUS Eye Drops 0.4ml 1 EACH OU (00:58)
[2022-11-17 03:32] VITALS: BP 127/79; PULSE 85; RESP 18; TEMP 36.9; O2SAT 96
[2022-11-17] MEDS: ceFAZolin 1 GM/50 ML BAG IVPB ×2 (05:42→13:21)
[2022-11-17] MEDS: Normal Saline Flush 10 ML SYR IVP ×3 (05:43→13:21)
[2022-11-17 07:33] VITALS: BP 124/77; PULSE 83; RESP 18; TEMP 36.8; O2SAT 93
[2022-11-17] MEDS: Lisinopril 20 MG TAB PO (07:45)
[2022-11-17] MEDS: Acetaminophen 500 MG TAB 1000 MG PO ×2 (07:45→13:21)
[2022-11-17] MEDS: Pantoprazole 40 MG TABCR PO (07:45)
[2022-11-17] MEDS: Dexamethasone 4 MG TAB PO (07:45)
[2022-11-17] MEDS: Aspirin E.C. 81 MG TABEC PO (07:46)
[2022-11-17] MEDS: Insulin Aspart 300 UNITS/3 ML PEN SC ×2 (07:49→12:36)
--- NOTE | 2022-11-17 09:13 | INITIAL_ITS ---
- If Service Date Differs Date of service: 11/17/22 Time of Service: 09:13 Care Management Initial Assess REASON FOR HOSPITALIZATION:: fractured femur PAST MEDICAL HISTORY/PAST SURGICAL HISTORY:: All Active Problems (Updated 11/16/22 @ 17:15 by Juan Ballard MD). Closed fracture of proximal end of right femur (Acute). Colon cancer screening (Acute). Diabetes. Hypertension. Surgical History . Orbital fracture repair. right closed PREVIOUS FUNCTIONAL STATUS/SOCIAL/FAMILY SUPPORTS:: Kranthi lives in a single family home in [place] with his female school fundraising director Muna Nye. 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 he is independent at baseline and does not receive any community resources. CURRENT FUNCTIONAL STATUS:: Kranthi was sitting up in a chair when CM met with him. He stated that he was pain free and that he had already walked with PT. He also indicated that he would be discharging home this afternoon and denied the need for home health or any other services. ADVANCE DIRECTIVES:: on file. Muna Nye [facility] Has patient been provided with info about the portal/API?: Yes Did the patient sign up for the portal?: No CODE STATUS:: Full Code INSURANCE COVERAGE / FINANCIAL ISSUES:: [facility] Medicare replacement. Medicaid CURRENT HOME/COMMUNITY SERVICES/EQUIPMENT:: will take home a walker PRIMARY CARE PHYSICIAN:: Flex Elizalde POTENTIAL DISCHARGE NEEDS:: Follow up with Orthopedics and PCP PATIENT/FAMILY EDUCATION NEEDS:: Review of discharge instructions, limitations, activity, follow up plan, discuss [employer] TRANSPORTATION:: via private vehicle PLAN:: Anticipate Kranthi will discharge home, with no new services. He will folllow up with Ortho, his PCP and plan of care and transport with friend/family.CM will support Chirs and assess for discharge needs.
--- NOTE | 2022-11-17 10:49 | W.PM.DS.N ---
Date of service: 11/17/22 Time of Service: 10:51 DS: Diagnosis Discharge Diagnosis (1) Closed fracture of proximal end of right femur: Status: Acute Asessment and Plan: WBAT with assistive device. ASA 81mg BID. ROM as tolerated. Discharge Plan Disposition Patient Disposition: Home Condition: Good Discharge Details Reason For Visit: Right Poximal Femur Fracture Admit Date/Time: 11/16/22 17:07 Admit Provider: Juan Ballard Attending Provider: Juan Ballard Primary Care Provider: Flex Elizalde Hospital Course Hospital Course: Patient was admitted to the medical/surgical floor following the procedure. The surgery was tolerated well without any notable medical, surgical, or anesthetic complications. Mobilization began postoperatively. He was voiding spontaneously. Vitals were stable. Physical therapy worked with the patient and was cleared for discharge home. No acute medical issues. Pain was controlled on oral regimen. Home Meds and New Rx's Prescriptions: New acetaminophen 500 mg tablet 1,000 mg PO Q8H PRN (Reason: pain) Qty: 90 3RF celecoxib 200 mg capsule 200 mg PO BID PRN (Reason: pain) Qty: 60 1RF oxycodone 5 mg tablet 5 mg PO Q4H PRN (Reason: pain) Qty: 10 0RF aspirin 81 mg tablet,delayed release (DR/EC) 81 mg PO BID Qty: 60 0RF Continued metformin 750 MG tablet extended release 24 hr 1 tab PO DAILY Patient Comments: TAKE 1 TABLET BY MOUTH DAILY lisinopril 20 mg Tablet 20 mg PO DAILY Discharge Instructions Referrals: Juan Ballard MD [ [facility] STAFF PHYSICIAN] - Activity:: Activity as Tolerated Equipment/Supplies:: Walker Diet:: As Tolerated Discharge Orders Discharge Orders: Discharge Order (Routine); Ordered 11/17/22 Ordered By: Juan Ballard DS: Summary Time Spent with Patient providing and/or coordinating discharge services: Less than 30 minutes Status at Discharge Functional status at discharge: uses cane/walker Overall status at discharge: patient is progressing back to baseline Mental Status: mental status grossly normal Speech and Movement: speech and movement normal Mood: congruent mood Affect: normal affect Exam Psych Mental Status: mental status grossly normal Speech and Movement: speech and movement normal Mood: congruent mood Affect: normal affect DS: Data Vitals/I&O Vitals and I&O: Vital Signs Temperature 36.8 C 11/17/22 07:33 Temperature Source Tympanic 11/17/22 07:33 Pulse 83 11/17/22 07:33 Pulse Rhythm Regular 11/17/22 09:53 Respiratory Rate 18 11/17/22 07:33 Respiratory Effort Normal 11/17/22 09:53 Respiratory Depth Normal 11/17/22 09:53 Respiratory Pattern Normal 11/17/22 09:53 Blood Pressure 124/77 11/17/22 07:33 Blood Pressure Position Supine 11/16/22 14:35 Pulse Oximetry 93 11/17/22 07:33 Respiratory End-tidal CO2 35 11/16/22 20:58 Oxygen Delivery Method Room Air 11/17/22 07:33 Oxygen Flow Rate 0 11/17/22 07:33 Pain Level 0 11/17/22 07:45 Intake & Output 11/16/22 11/16/22 11/17/22 11:59 23:59 11:59 Intake Total 799.5 / 799.5 170 / 170 Output Total 250 / 250 500 / 500 Balance 549.5 / 549.5 -330 / -330 Weight 129.3 kg Intake: IV 799.5 / 799.5 50 / 50 Oral 0 / 0 120 / 120 Output: Urine 50 / 50 500 / 500 Estimated Blood Loss 200 / 200 Other: Urine Color Light Brooke Straw Urine Appearance Clear Clear Voiding Methods Urinal Data Completed and Pending Labs on day of discharge: Labs from last 24 hours 11/16/22 11/16/22 11/16/22 22:00 15:23 15:23 WBC RBC Hgb Hct MCV MCH MCHC RDW Plt Count MPV Immature Gran % Neutrophils % Lymphocytes % Monocytes % Eosinophils % Basophils % Nucleated RBC % Absolute Neutrophils Absolute Lymphocytes Absolute Monocytes Absolute Eosinophils Absolute Basophils PT INR APTT Sodium Potassium Chloride Carbon Dioxide Anion Gap BUN Creatinine Est GFR (CKD-EPI 2020) Glucose Hemoglobin A1c 6.5 H Calcium Magnesium Total Bilirubin AST ALT Alkaline Phosphatase Troponin I Total Protein Albumin COVID-19 Source Nasal/Nares SARS-CoV-2 (PCR) Negative Add-On Test Request DONE Patient ABO/Rh Antibody Screen 11/16/22 11/16/22 11/16/22 15:23 15:00 15:00 WBC 15.38 H RBC 4.97 Hgb 15.3 Hct 43.7 MCV 88 MCH 30.8 MCHC 35.0 RDW 12.9 Plt Count 237 MPV 10.7 Immature Gran % 0.5 Neutrophils % 80.1 Lymphocytes % 10.2 Monocytes % 7.7 Eosinophils % 1.0 Basophils % 0.5 Nucleated RBC % 0.0 Absolute Neutrophils 12.32 H Absolute Lymphocytes 1.57 Absolute Monocytes 1.18 H Absolute Eosinophils 0.15 Absolute Basophils 0.08 PT 10.0 INR 1.0 APTT 22.9 Sodium Potassium Chloride Carbon Dioxide Anion Gap BUN Creatinine Est GFR (CKD-EPI 2020) Glucose Hemoglobin A1c Calcium Magnesium Total Bilirubin AST ALT Alkaline Phosphatase Troponin I Total Protein Albumin COVID-19 Source SARS-CoV-2 (PCR) Add-On Test Request Patient ABO/Rh A Positive Antibody Screen NEGATIVE 11/16/22 15:00 WBC RBC Hgb Hct MCV MCH MCHC RDW Plt Count MPV Immature Gran % Neutrophils % Lymphocytes % Monocytes % Eosinophils % Basophils % Nucleated RBC % Absolute Neutrophils Absolute Lymphocytes Absolute Monocytes Absolute Eosinophils Absolute Basophils PT INR APTT Sodium 138 Potassium 4.3 Chloride 101 Carbon Dioxide 33.0 H Anion Gap 4.0 BUN 16 Creatinine 0.9 Est GFR (CKD-EPI 2020) 94.19 Glucose 151 H Hemoglobin A1c Calcium 9.0 Magnesium 1.9 Total Bilirubin 0.5 AST 15 ALT 38 Alkaline Phosphatase 67 Troponin I < 50 Total Protein 7.4 Albumin 3.9 COVID-19 Source SARS-CoV-2 (PCR) Add-On Test Request Patient ABO/Rh Antibody Screen PFSH All Active Problems Closed fracture of proximal end of right femur (Acute) Colon cancer screening (Acute) Surgical History Orbital fracture repair right closed Social History Smoking/Tobacco Use Status: Former Tobacco Use Smoking risk assessment performed?: Yes Drug use: Never Do you feel safe at home: Yes Do you feel safe in your relationship?: Yes Time Spent with Patient Time Spent with Patient: <45 minutes Time was spent: obtaining and/or reviewing separately otained hiistory, ordering medications,tests, procedures, counseling the patient and care coordination
--- NOTE | 2022-11-17 11:49 | DSE_ITS ---
Date of service: 11/17/22 Time of Service: 11:49 DS: Diagnosis Discharge Diagnosis (1) Closed fracture of proximal end of right femur: Status: Acute Discharge Plan Disposition Patient Disposition: Home Condition: Good Discharge Details Reason For Visit: Right Poximal Femur Fracture Admit Date/Time: 11/16/22 17:07 Admit Provider: Juan Ballard Attending Provider: Juan Ballard Primary Care Provider: Flex Elizalde Hospital Course Hospital Course: Patient was admitted to the medical/surgical floor following the procedure. The surgery was tolerated well without any notable medical, surgical, or anesthetic complications. Mobilization began postoperatively. He was voiding spontaneously. Vitals were stable. Physical therapy worked with the patient and was cleared for discharge home. No acute medical issues. Pain was controlled on oral regimen. Home Meds and New Rx's Prescriptions: New acetaminophen 500 mg tablet 1,000 mg PO Q8H PRN (Reason: pain) Qty: 90 3RF celecoxib 200 mg capsule 200 mg PO BID PRN (Reason: pain) Qty: 60 1RF oxycodone 5 mg tablet 5 mg PO Q4H PRN (Reason: pain) Qty: 10 0RF aspirin 81 mg tablet,delayed release (DR/EC) 81 mg PO BID Qty: 60 0RF Continued metformin 750 MG tablet extended release 24 hr 1 tab PO DAILY Patient Comments: TAKE 1 TABLET BY MOUTH DAILY lisinopril 20 mg Tablet 20 mg PO DAILY Discharge Instructions Additional Instructions: Total Hip Discharge Instructions Activity: The most important activity is to walk. You should try to take short walks a few times a day. You have no restrictions on movement or positioning, but do not try to force what you do. You will find some stiffness and weakness with hip flexion (lifting your knee). Do not try to strengthen this too early, continue to practice walking and stairs and this will come. - Outpatient physical therapy can be helpful to help return you to a normal gait and improve your flexibility and strength. This can start around 2 weeks. For some patients, it?s not necessary. Usually this is determined at the time of discharge or at the first post-operative visit. - You should wear the LUISANA hose on both legs for 2 weeks. Dressing: Keep the surgical dressing in place for at least one week. After the first week it may be removed and replace with light gauze and tape or nothing. It may get wet after 3 days but avoid soaking the dressing. If it gets wet, just lightly pat dry. Medications: - You should take Tylenol and an anti-inflammatory Celebrex as your primary pain control medications. If the Celebrex is too expensive or not covered, please call the office for another alternative (Advil/Ibuprofen or Naproxen/Aleve). - You have been prescribed a stronger pain medication Oxycodone for breakthrough pain, take as needed as prescribed. - You will be taking Aspirin 81mg twice a day for DVT prevention unless instructed otherwise. - If you have constipation you should take Colace or Miralax (both [id number]-[id number]). It takes most people 3-4 days to have a bowel movement. Follow-up: 2 weeks If you have any acute concerns or questions, please do not hesitate to contact the office at [phone]. You may contact Dr. Ballard with any questions after hours through the hospital at [phone] or on his cell phone at [phone]. Referrals: Juan Ballard MD [ [facility] STAFF PHYSICIAN] - Activity:: Activity as Tolerated Equipment/Supplies:: Walker Diet:: As Tolerated Discharge Orders Discharge Orders: Discharge Order (Routine); Ordered 11/17/22 Ordered By: Juan Ballard DS: Summary Time Spent with Patient providing and/or coordinating discharge services: Less than 30 minutes Status at Discharge Functional status at discharge: uses cane/walker Overall status at discharge: patient is progressing back to baseline Mental Status: mental status grossly normal Speech and Movement: speech and movement normal Mood: congruent mood Affect: normal affect Exam Narrative Exam Narrative: AAOx3. NAD. RLE dressings c/d/i. Leg appropriately rotated and positioning. +ADF/APF/EHL/FHL. SILT DP/SP/Tib. +DP/PT Psych Mental Status: mental status grossly normal Speech and Movement: speech and movement normal Mood: congruent mood Affect: normal affect DS: Data Vitals/I&O Vitals and I&O: Vital Signs Temperature 36.8 C 11/17/22 07:33 Temperature Source Tympanic 11/17/22 07:33 Pulse 83 11/17/22 07:33 Pulse Rhythm Regular 11/17/22 09:53 Respiratory Rate 18 11/17/22 07:33 Respiratory Effort Normal 11/17/22 09:53 Respiratory Depth Normal 11/17/22 09:53 Respiratory Pattern Normal 11/17/22 09:53 Blood Pressure 124/77 11/17/22 07:33 Blood Pressure Position Supine 11/16/22 14:35 Pulse Oximetry 93 11/17/22 07:33 Respiratory End-tidal CO2 35 11/16/22 20:58 Oxygen Delivery Method Room Air 11/17/22 07:33 Oxygen Flow Rate 0 11/17/22 07:33 Pain Level 0 11/17/22 07:45 Intake & Output 11/16/22 11/16/22 11/17/22 11:59 23:59 11:59 Intake Total 799.5 / 799.5 530 / 530 Output Total 250 / 250 500 / 500 Balance 549.5 / 549.5 30 / 30 Weight 129.3 kg Intake: IV 799.5 / 799.5 50 / 50 Oral 0 / 0 480 / 480 Output: Urine 50 / 50 500 / 500 Estimated Blood Loss 200 / 200 Other: Urine Color Light Brooke Straw Urine Appearance Clear Clear Voiding Methods Urinal Data Completed and Pending Labs on day of discharge: Labs from last 24 hours 11/16/22 11/16/22 11/16/22 22:00 15:23 15:23 WBC RBC Hgb Hct MCV MCH MCHC RDW Plt Count MPV Immature Gran % Neutrophils % Lymphocytes % Monocytes % Eosinophils % Basophils % Nucleated RBC % Absolute Neutrophils Absolute Lymphocytes Absolute Monocytes Absolute Eosinophils Absolute Basophils PT INR APTT Sodium Potassium Chloride Carbon Dioxide Anion Gap BUN Creatinine Est GFR (CKD-EPI 2020) Glucose Hemoglobin A1c 6.5 H Calcium Magnesium Total Bilirubin AST ALT Alkaline Phosphatase Troponin I Total Protein Albumin COVID-19 Source Nasal/Nares SARS-CoV-2 (PCR) Negative Add-On Test Request DONE Patient ABO/Rh Antibody Screen 11/16/22 11/16/22 11/16/22 15:23 15:00 15:00 WBC 15.38 H RBC 4.97 Hgb 15.3 Hct 43.7 MCV 88 MCH 30.8 MCHC 35.0 RDW 12.9 Plt Count 237 MPV 10.7 Immature Gran % 0.5 Neutrophils % 80.1 Lymphocytes % 10.2 Monocytes % 7.7 Eosinophils % 1.0 Basophils % 0.5 Nucleated RBC % 0.0 Absolute Neutrophils 12.32 H Absolute Lymphocytes 1.57 Absolute Monocytes 1.18 H Absolute Eosinophils 0.15 Absolute Basophils 0.08 PT 10.0 INR 1.0 APTT 22.9 Sodium Potassium Chloride Carbon Dioxide Anion Gap BUN Creatinine Est GFR (CKD-EPI 2020) Glucose Hemoglobin A1c Calcium Magnesium Total Bilirubin AST ALT Alkaline Phosphatase Troponin I Total Protein Albumin COVID-19 Source SARS-CoV-2 (PCR) Add-On Test Request Patient ABO/Rh A Positive Antibody Screen NEGATIVE 11/16/22 15:00 WBC RBC Hgb Hct MCV MCH MCHC RDW Plt Count MPV Immature Gran % Neutrophils % Lymphocytes % Monocytes % Eosinophils % Basophils % Nucleated RBC % Absolute Neutrophils Absolute Lymphocytes Absolute Monocytes Absolute Eosinophils Absolute Basophils PT INR APTT Sodium 138 Potassium 4.3 Chloride 101 Carbon Dioxide 33.0 H Anion Gap 4.0 BUN 16 Creatinine 0.9 Est GFR (CKD-EPI 2020) 94.19 Glucose 151 H Hemoglobin A1c Calcium 9.0 Magnesium 1.9 Total Bilirubin 0.5 AST 15 ALT 38 Alkaline Phosphatase 67 Troponin I < 50 Total Protein 7.4 Albumin 3.9 COVID-19 Source SARS-CoV-2 (PCR) Add-On Test Request Patient ABO/Rh Antibody Screen PFSH All Active Problems Closed fracture of proximal end of right femur (Acute) Colon cancer screening (Acute) Surgical History Orbital fracture repair right closed Social History Smoking/Tobacco Use Status: Former Tobacco Use Smoking risk assessment performed?: Yes Drug use: Never Do you feel safe at home: Yes Do you feel safe in your relationship?: Yes Time Spent with Patient Time Spent with Patient: <45 minutes Time was spent: ordering medications,tests, procedures and counseling the patient
--- NOTE | 2022-11-17 13:09 | PT.INTREAT ---
Date of service: 11/17/22 Time of Service: 11:40 PT Notes Visit Reasons: Right Poximal Femur Fracture Inpatient Physical Therapy Treatment Note [facility] Date: 11/17/2022 PRECAUTIONS: Fall, Activity as tolerated, WBAT R SUBJECTIVE: Kranthi is pleasant and agreeable to participating in PT. He states that he will be going home this afternoon. OBJECTIVE: PAIN: No c/o pain THEREX: Issued and reviewed HEP for LE strengthening and stabilization. Patient demonstrates good understanding and appropriate exercise mechanics when executing the program. Ankle pumps x20 Quad sets 10x3 secs Glute sets 10 x3 secs LAQ x10 Hip flexion x10 Isometric abduction 10x3 secs Isometric adduction 10x3 secs PLAN: Patient to discharge to home later today, per provider. Recommend follow up with HH PT upon discharge. TREATMENT CODE/TIME: 10 minutes; 65662 (11:40)
--- NOTE | 2022-11-17 13:24 | CMDISCH_ITS ---
- If Service Date Differs Date of service: 11/17/22 Time of Service: 13:24 LACE Index Scoring Tool - Questions: Length of Stay (in days): 1 Acuity (Admit via E.D.?): Yes Comorbidities: Diabetes w/o Complication E.D. Visits: 1 - Answers: Total Score: 6 Risk of Readmission: Low Risk Care Management Discharge Reason for Hospitalization: fractured femur Discharge Plan: Kranthi will discharge home with no new services. He will folllow up with Ortho, his PCP and plan of care and transport with his logistics planning manager Muna. Patient/Family Education Needs: Review of discharge instructions, limitations, activity, follow up plan, discuss Ask Me Three
--- NOTE | 2022-11-17 14:01 | IN_ITS ---
Date of service: 11/17/22 Time of Service: 10:25 PT Notes Visit Reasons: Right Poximal Femur Fracture Physical Therapy Inpatient Initial Evaluation Date: 11/17/2022 Referring Doctor: Juan Ballard MD PT Orders: PT CONSULT: S/P Ortho surgery. S/P IMN fixation of right femur Frx Precautions: WBAT on right LE with AD. Patient Profile/Admitting Diagnosis: Kranthi is a 67-year-old male who sustained a comminuted intertrochanteric fracture of the right side from a fall and is status post ORIF using IM nailing on postoperative day 1. PMHX: All Active Problems?(Updated 11/16/22 @ 17:15 by Juan Ballard MD) Closed fracture of proximal end of right femur (Acute) Colon cancer screening (Acute) Surgical History? Orbital fracture repair right closed Social History/Home Situation: Lives with in a handicap-accessible residence with no steps at the entrance. He has a second floor area that he can do without in the meantime he is healing from surgery. Equipment Owned/DME: FWW x 2 Subjective: Patient complains of pain and tightness in the R lateral thigh with movement that subsided a bit with walking. Denies, chest pain, and redness throughout. Anxious to go home as soon as he is cleared. Objective: General Observation: Supine in bed. Mepilex Agover surgical incsion. TEDS to B legs. Mental Status: Alert and oriented as to person, place, time, and purpose. Able to pay attention, focus, and respond appropriately. Pain: 5/10 in R later thigh Vital Signs: WNL monitored by nursing staff ROM: Right Lower Extremity: Hip flexion lacks the last 25% of AROM due to discomfort. Hip abduction WFL. Knee flexion WFL. Ankle dorsiflexion WFL. Ankle plantarflexion WFL. Left Lower Extremity: Hip flexion WFL. Hip abduction WFL. Knee flexion WFL. Ankle dorsiflexion WFL. Ankle plantarflexion WFL. Strength: Right Lower Extremity: Hip flexors 3-/5. Hip abductors 4-/5. Knee flexors 5/5. Knee extensors 4-/5. Ankle dorsiflexors 4/5. Ankle plantarflexors 4/5. Left Lower Extremity: Hip flexors 5/5. Hip abductors 5/5. Knee flexors 5/5. Knee extensors 55/5. Ankle dorsiflexors 5/5. Ankle plantarflexors 5/5. Bed Mobility/Transfers: Supine to sit supervision Sit to stand contact-guard assist Stand to sit standby assist Gait: Instructed patient with level surface ambulation of 200 feet requiring stand by assist. Mild antalgic gait noted. Step to gait pattern. No LOB. No SOB. Stairs: Up and down 6 x 4 inch steps and 4 x 6 inch steps holding onto bilateral rails with step to gait pattern requiring only standby assist. Reported fatigue after activity. that subsided with rest. Balance: Static Sitting: Normal Dynamic Sitting: Normal Static Standing: Fair Dynamic Standing: Fair Special Tests: Mobility Limitations Standardized Measure [facility] 6 clicks Basic Mobility Inpatient Short Form: Raw Score: 23 CMS Score: 11% deficit Informed Consent/Education: Patient was instructed in purpose of PT consult and plan of care. Agreeable to proceed with established PT POC to achieve personal goals. Assessment: Patient requires the use of a front wheel walker to maximize independence, decrease pain, and reduce fall risk and discharge destination. Patient presents with clinical signs and symptoms consistent with current/admitting diagnoses that have resulted to mobility limitations, gait instability, generalized weakness, and overall ADL decline as demonstrated by the following impairment level findings: 1. Decreased strength to R hip major muscle groups 2. Impaired sitting/standing balance 3. Impaired activity tolerance 4. Limitation of joint range of motion in R hip Impairments are contributing to the following functional limitations: 1. Difficulty with ambulation without assistive device 2. Increased completion time for mobility ADL performance Patient is assessed as a 29953 moderate complexity based on the following: History: 67-year-old male with past medical history as indicated above Examination: Demonstrable impairment in strength, balance, and mobility level with underlying impairments and functional limitations as exhibited above as w ell as deficit score of 11% utilizing the [facility] Mobility Inpatient Short Form Presentation: Evolving Decision Makin moderate complexity Goals: N/A. PT evaluation 1 treatment session only for HEP education. Plan of Care/Treatment Plan: N/A. PT evaluation 1 treatment session only for HEP education. DISCHARGE RECOMMENDATIONS: [] Home with no services [] [] Home with services [specify] [X] Home with outpatient PT. Home when medically cleared by orthopedic surgeon. And outpatient PT services in order to optimize functional mobility outcomes and facilitate return to independent community ambulation without an assistive device. [] SNF for continued rehabilitation [] [] [employer] [facility] [] [] SNF versus LTC based on ability to participate and progress [] TREATMENT CODE/TIME: 36992 x 25, 27617 x 17 minutes beginning at 10:25 AM. Thank you for the opportunity to participate in the care of this patient. Luh Cruz PT, DPT, CLT [facility] [place], [place]
== END 2022-11-17 14:49 | disposition home or self-care (01) | DRG 482 ==
LOC: ER 16:16 → DSU 17:56 → ER 21:37 → MS 21:37
PROVIDERS: Admitting Provider Student in an Organized Health Care Education/Training Program; Emergency Provider Emergency Medicine; PCP Specialist/Technologist Athletic Trainer; Visit Provider Student in an Organized Health Care Education/Training Program
PROC: 0QS606Z Reposition Right Upper Femur with Intramedullary Internal Fixation Device, Open Approach (ICD-10-PCS; CPT 27245; principal; 2022-11-16 17:20)
DX: S72.141A Displaced intertrochanteric fracture of right femur, initial encounter for closed fracture (principal); W00.0XXA Fall on same level due to ice and snow, initial encounter; Z87.891 Personal history of nicotine dependence
CPT/HCPCS: 27245; 36415; 73552; 76000; 80053; 86850; 86900; 86901; 87635; 93005; 96374; 96376; 97110; 97162; 97530; 99223; 99285; 71045; 73501; 73502; 83036; 83735; 84484; 85025; 85610; 85730; 93010; J0131; J0690; J1100; J1170; J1885; J2370; J2405; J2704; J8540

== ENCOUNTER 2022-12-02 11:48 | Outpatient (CLI) | payer MEDICARE, MEDICAID, SELFPAY ==
--- NOTE | 2022-12-02 09:30 | DI.RAD_ITS ---
Exam(s) XR FEMUR RT EXAM: XR FEMUR RT CLINICAL HISTORY: S/P ORIF R FEMUR. TECHNIQUE: 2D digital imaging was performed. AP and lateral views. COMPARISON: XA XR HIP RT IN OR from 11/16/2022 CR XR FEMUR RT from 11/16/2022 FINDINGS: Intramedullary blake is noted through the femur for fracture fixation. There has been improvement in f racture alignment. DATA REPOSITORY: RADIATION DOSE DELIVERED:
== END 2022-12-02 11:49 | disposition home or self-care (01) ==
LOC: DIORS 11:49
PROVIDERS: PCP Nurse Practitioner Family; Referring Provider Nurse Practitioner Family; Visit Provider Student in an Organized Health Care Education/Training Program
DX: S72.001D Fracture of unspecified part of neck of right femur, subsequent encounter for closed fracture with routine healing (principal); X58.XXXD Exposure to other specified factors, subsequent encounter
CPT/HCPCS: 73552

== ENCOUNTER 2022-12-30 09:25 | Outpatient (CLI) | payer MEDICARE, MEDICAID, SELFPAY ==
--- NOTE | 2022-12-30 08:15 | DI.RAD_ITS ---
Exam(s) XR FEMUR RT EXAM: XR FEMUR RT CLINICAL HISTORY: F/U im fixation R femur. TECHNIQUE: 2D digital imaging was performed. Five images were obtained. AP and lateral views were o btained. COMPARISON: CR XR FEMUR RT from 12/02/2022 FINDINGS: BONES: There is again seen an intramedullary blake and screws transfixing the intertrochanteric fractur e of the proximal femur. The screw in the distal femur is fractured. No new fracture or dislocation . JOINTS: The joint spaces are well maintained. SOFT TISSUE: Normal. IMPRESSION: Stable alignment of the proximal femoral fracture. DATA REPOSITORY: RADIATION DOSE DELIVERED:
== END 2022-12-30 09:26 | disposition home or self-care (01) ==
LOC: DIORS 09:26
PROVIDERS: PCP Nurse Practitioner Family; Referring Provider Nurse Practitioner Family; Visit Provider Physician Assistant
DX: S72.141D Displaced intertrochanteric fracture of right femur, subsequent encounter for closed fracture with routine healing (principal); X58.XXXD Exposure to other specified factors, subsequent encounter; T84.194A Other mechanical complication of internal fixation device of right femur, initial encounter
CPT/HCPCS: 73552

== ENCOUNTER 2023-01-26 10:57 | Outpatient (REF) | payer MEDICARE, MEDICAID, SELFPAY ==
[2023-01-26 16:21] LABS: ALT 26 U/L (16-63); AST 17 U/L (15-37)
[2023-01-26 16:23] LABS: Calculated LDL 81 mg/dL (<100); Cholesterol 136 mg/dL (<200); HDL Cholesterol 39 mg/dL (40-60); Triglyceride 84 mg/dL (<150)
== END 2023-01-26 10:58 | disposition home or self-care (01) ==
LOC: NCHCN 10:57
PROVIDERS: PCP Nurse Practitioner Family; Visit Provider Nurse Practitioner Family
DX: E11.9 Type 2 diabetes mellitus without complications (principal); I10 Essential (primary) hypertension
CPT/HCPCS: 80061; 82550; 82552; 84450; 84460

== ENCOUNTER 2023-02-03 10:00 | Outpatient (REF) | payer MEDICARE, MEDICAID, SELFPAY ==
[2023-02-11 09:25] LABS: PSA, Screening 6.3 ng/mL (<=4.5)
== END 2023-02-03 10:01 | disposition home or self-care (01) ==
LOC: NCHCN 10:00
PROVIDERS: PCP Nurse Practitioner Family; Visit Provider Nurse Practitioner Family
DX: R97.20 Elevated prostate specific antigen [PSA] (principal)
CPT/HCPCS: 84153

== ENCOUNTER 2023-02-07 15:18 | Outpatient (CLI) | payer MEDICARE, MEDICAID, SELFPAY ==
--- NOTE | 2023-02-07 15:00 | DI.RAD_ITS ---
Exam(s) XR FEMUR RT EXAM: XR FEMUR RT CLINICAL HISTORY: S/P IM NAIL. TECHNIQUE: 2D digital imaging was performed. Four images were obtained. AP and lateral views were o btained. COMPARISON: CR XR FEMUR RT from 12/30/2022 FINDINGS: BONES: There are stable post operative changes present. There has been no change in alignment of the proximal femoral fracture. Callus formation has developed about the fracture site. There is again seen a fracture of the distal orthopedic screw. No new fracture or dislocation. JOINTS: The joint spaces are well maintained. SOFT TISSUE: Normal. IMPRESSION: Stable postoperative changes. DATA REPOSITORY: RADIATION DOSE DELIVERED:
== END 2023-02-07 15:19 | disposition home or self-care (01) ==
LOC: DIORS 15:18
PROVIDERS: PCP Nurse Practitioner Family; Referring Provider Nurse Practitioner Family; Visit Provider Student in an Organized Health Care Education/Training Program
DX: S72.141D Displaced intertrochanteric fracture of right femur, subsequent encounter for closed fracture with routine healing (principal); X58.XXXD Exposure to other specified factors, subsequent encounter
CPT/HCPCS: 73552

== ENCOUNTER 2023-03-11 09:49 | Outpatient (CLI) | payer MEDICARE, MEDICAID, SELFPAY ==
--- NOTE | 2023-03-11 09:15 | DI.RAD_ITS ---
Exam(s) XR FEMUR RT EXAM: XR FEMUR RT INDICATION: R hip fx. COMPARISON: CR XR FEMUR RT from 02/07/2023 TECHNIQUE: 2D digital imaging was performed. Two views. FINDINGS: An intramedullary blake is again noted through the femur. There has been no change in the alignment of the proximal femoral fracture. There is increased callus formation around the fracture site. No ne w abnormalities DATA REPOSITORY: RADIATION DOSE DELIVERED:
== END 2023-03-11 09:50 | disposition home or self-care (01) ==
LOC: DIORS 09:50
PROVIDERS: PCP Nurse Practitioner Family; Referring Provider Nurse Practitioner Family; Visit Provider Physician Assistant
DX: S72.141D Displaced intertrochanteric fracture of right femur, subsequent encounter for closed fracture with routine healing (principal); X58.XXXD Exposure to other specified factors, subsequent encounter
CPT/HCPCS: 73552; 99213

== ENCOUNTER 2023-04-08 09:47 | Outpatient (CLI) | payer MEDICARE, MEDICAID, SELFPAY ==
--- NOTE | 2023-04-08 11:42 | DI.RAD_ITS ---
Exam(s) XR FEMUR RT EXAM: XR FEMUR RT INDICATION: PAIN. COMPARISON: CR XR HIP RT COMPLETE AP PELVIS from 11/16/2022 CR XR FEMUR RT from 12/02/2022 CR XR FEMUR RT from 12/30/2022 CR XR FEMUR RT from 02/07/2023 CR XR FEMUR RT from 03/11/2023 TECHNIQUE: 2D digital imaging was performed. Two views. FINDINGS: Intramedullary blake is again noted in the right femur. There has been no change in fracture or hardwa re alignment. Callus formation is present around the fracture. The lesser trochanter is again noted to be displaced, unchanged. DATA REPOSITORY: RADIATION DOSE DELIVERED:
== END 2023-04-08 09:48 | disposition home or self-care (01) ==
LOC: DIORS 09:47
PROVIDERS: PCP Nurse Practitioner Family; Referring Provider Nurse Practitioner Family; Visit Provider Student in an Organized Health Care Education/Training Program
DX: X58.XXXA Exposure to other specified factors, initial encounter (principal); M79.651 Pain in right thigh; S72.001A Fracture of unspecified part of neck of right femur, initial encounter for closed fracture
CPT/HCPCS: 73552; 99213

== ENCOUNTER 2023-04-14 01:37 | Outpatient (CLI) | payer MEDICARE, SELFPAY ==
--- NOTE | 2023-04-14 08:33 | DI.CT_ITS ---
Exam(s) CT LOWER EXTREMITY RT WO EXAM: CT LOWER EXTREMITY RT WO CLINICAL HISTORY: FX HEALING ASSESSMENT,S72.001A,CLOSED FX PROXIMAL END OF RT FEMUR. TECHNIQUE: Imaging Protocol: Axial computed tomography images with coronal and sagittal reformatted images were created and reviewed. COMPARISON: CR XR FEMUR RT from 04/08/2023 FINDINGS: There is artifact from the patient's orthopedic hardware. Bones: There is again seen an oblique fracture through the proximal metaphysis of the right femur. T he fracture line is still visualized. This is most appreciated at the anterior and inferior aspect of the fracture. There is some bridging callus formation present. The displaced fracture of the lesser trochanter is also noted. The patient has an intramedullary blake and nail in place. No new fractures a ppreciated. Bony alignment is satisfactory. No cellulitic or osteomyelitic changes are identified. There is mild joint space narrowing of the right hip. No lytic or sclerotic lesions are identified. Soft Tissues: Atherosclerosis is present. IMPRESSION: Incomplete healing of the subtrochanteric right femoral fracture. RADIATION DOSE DELIVERED: 352.71mGy.cm Total DLP 352.71mGy.cm Total DLP DATA REPOSITORY: All CT scans at this facility are submitted to the National Radiology Data Registry (NRDR) Dose Index Registry (DIR) with the [employer] (ACR). RADIATION OPTIMIZATION: All CT scans at this facility use at least one of these dose optimization te chniques: automated exposure control; mA and/or kV adjustment per patient size (includes targeted exa ms where dose is matched to clinical indication); or iterative reconstruction.
== END 2023-04-14 01:57 ==
LOC: DI 01:37
PROVIDERS: PCP Nurse Practitioner Family; Visit Provider Student in an Organized Health Care Education/Training Program
DX: S72.141D Displaced intertrochanteric fracture of right femur, subsequent encounter for closed fracture with routine healing (principal); X58.XXXD Exposure to other specified factors, subsequent encounter
CPT/HCPCS: 73700

== ENCOUNTER 2023-05-27 09:24 | Outpatient (CLI) | payer MEDICARE, SELFPAY ==
--- NOTE | 2023-05-27 08:45 | DI.RAD_ITS ---
Exam(s) XR FEMUR RT EXAM: XR FEMUR RT CLINICAL HISTORY: right femur fracture. TECHNIQUE: 2D digital imaging was performed of the right femur. Four images were obtained. AP and l ateral views were obtained. COMPARISON: CR XR FEMUR RT from 04/08/2023 FINDINGS: BONES: There is again seen an intramedullary nail and blake transfixing the proximal femoral fracture. There has been no change in alignment of the fracture compared to the prior examination. Increased callus formation about the fracture is noted suggesting interval healing. The distal screw is unchan ged. No new fracture is seen. No bony destructive lesion is seen. There are degenerative changes se en at the knee. SOFT TISSUE: Normal. IMPRESSION: Stable alignment of the orthopedic hardware and proximal right femoral fracture. DATA REPOSITORY: RADIATION DOSE DELIVERED:
== END 2023-05-27 09:25 | disposition home or self-care (01) ==
LOC: DIORS 09:24
PROVIDERS: PCP Nurse Practitioner Family; Referring Provider Nurse Practitioner Family; Visit Provider Student in an Organized Health Care Education/Training Program
DX: S72.001D Fracture of unspecified part of neck of right femur, subsequent encounter for closed fracture with routine healing; X58.XXXD Exposure to other specified factors, subsequent encounter
CPT/HCPCS: 73552; 99213

== ENCOUNTER 2024-01-25 09:34 | Outpatient (REF) | payer MEDICARE, SELFPAY ==
[2024-01-25 16:15] LABS: ALT 32 U/L (16-63); AST 13 U/L (15-37); Albumin 4.1 g/dL (3.4-5.0); Alkaline Phosphatase 104 U/L (46-116); Anion Gap 8.3 mmol/L (3-11); BUN 15 mg/dL (7-18); Bilirubin, Total 0.9 mg/dL (0.2-1.0); CO2 28.7 mmol/L (21.0-32.0); CREATININE 0.9 mg/dL (0.70-1.30); Calcium 9.2 mg/dL (8.5-10.1); Chloride 102 mmol/L (98-107); Creatine Kinase 81 U/L (39-308); Estimated GFR 93.61 (mL/min/1.73m2); Glucose 141 mg/dL (74-106); Potassium 4.8 mmol/L (3.5-5.1); Sodium 139 mmol/L (136-145); Total Protein 7.3 g/dL (6.4-8.2)
[2024-01-25 16:23] LABS: Hemoglobin A1C 6.5 % (<5.7)
[2024-01-25 16:57] LABS: HDL Cholesterol 48 mg/dL (40-60); LDL CHOLESTEROL 92 mg/dL (<100)
[2024-01-25 23:31] LABS: PSA, Screening 8.3 ng/mL (<=4.5)
== END 2024-01-25 09:35 | disposition home or self-care (01) ==
LOC: NCHCN 09:34
PROVIDERS: PCP Nurse Practitioner Family; Visit Provider Nurse Practitioner Family
DX: E11.9 Type 2 diabetes mellitus without complications (principal); R97.20 Elevated prostate specific antigen [PSA]
CPT/HCPCS: 80053; 82550; 83721; 84153; 83036; 83718

== ENCOUNTER 2024-04-09 09:30 | Outpatient (CLI) | payer MEDICARE, SELFPAY ==
--- NOTE | 2024-04-09 09:15 | DI.RAD_ITS ---
Exam(s) XR KNEE LT 4V AP,LAT,AXEL,PAT EXAM: XR KNEE LT 4V AP,LAT,AXEL,PAT CLINICAL HISTORY: L knee pain. TECHNIQUE: 2D digital imaging was performed. Four views. COMPARISON: None FINDINGS: BONES: No acute fracture is present. No bony destructive lesion is seen. JOINTS: Severe narrowing of the medial femoral tibial joint space, with a [id number]-pm-exps appearance. P eriarticular spurring and sclerosis. Mild varus angulation and compensatory widening of the lateral femoral tibial joint space. Patellofemoral joint spaces maintained shows mild spurring. No joint ef fusion is seen. SOFT TISSUE: Normal. IMPRESSION: Severe degenerative changes of the medial femoral tibial joint. DATA REPOSITORY: RADIATION DOSE DELIVERED:
== END 2024-04-09 09:31 | disposition home or self-care (01) ==
LOC: DIORS 09:30
PROVIDERS: PCP Nurse Practitioner Family; Referring Provider Nurse Practitioner Family; Visit Provider Student in an Organized Health Care Education/Training Program
DX: M17.12 Unilateral primary osteoarthritis, left knee
CPT/HCPCS: 99213; 73564

== ENCOUNTER → 2024-04-16 08:34 | Outpatient (BNVA) | payer MEDICARE, SELFPAY | PROVIDERS: PCP Nurse Practitioner Family; Referring Provider Nurse Practitioner Family; Visit Provider Nurse Practitioner Gerontology | DX: N42.89 Other specified disorders of prostate (principal); R97.20 Elevated prostate specific antigen [PSA] | CPT/HCPCS: 51798; 99215 ==

== ENCOUNTER 2024-10-08 01:23 | Outpatient (CLI) | payer MEDICARE, SELFPAY ==
--- OUTSIDE RECORDS SUMMARY | 2024-10-08 01:37 | XMS_ITS | Encounter Summary ---
Author Organization [facility] Address [address] [place] [address] Care Team Providers Care Help Desk Assistant Name Role Phone Unavailable Primary Care Provider Unavailabl e Encounter Details Date Type Department Care Team (Late st Contact Info) Description 01/25/2022 Lab Requisition [facility] - [facility] [address] [place] [address] Outr Resulting Lab, Provider Social History Tobacco Use Types Packs/Day Years Used Date Smoking Tobacco: Never Assessed Interpersonal Safety Answer Date Record ed Physically Hurt Never 07/29/2020 Verbally Threaten Not on file 07/29/2020 Sex and Gender Information Value Date Recorded Sex Assigned at Not on file Legal Sex Male 11:51 EST Gender Identity Not on file Sexual Orientation Not on file documented as of this encounter Plan of Treatment Not on file documented as of this encounter Procedures Procedure Name Priority Date/Time Associated Diagnosis Comments PSA TOTAL, DIAGNOSTIC Routine 01/25/2022 8:15 EDT documented in this encounter Results * (ABNORMAL) PSA TOTAL, DIAGNOSTIC (01/25/2022 8:15 EDT) PSA 5.3(H) <=4.5 ng/mL 01/25/2022 22:44 EDT [facility] Blood VENOUS BLOOD / Unknown 01/25/2022 8:15 EDT 01/25/2022 21:43 EDT Narrative [facility] - 01/25/2022 22:44 EDT NOTE: Serum PSA concentration should not be interpreted as absolute evidence for the presence or absence of malignant disease. Assayed on Siemens [employer] XPT using chemiluminescent technology.??Values obtained by using different assay methods cannot be used interchangeably. us Provider Outr Resulting Lab CHEMISTRY & BLOOD GA S ORDERABLES Final Result [facility] [address] [place] [address] documented in this encounter Visit Diagnoses Not on filedocumented in this encounter
--- OUTSIDE RECORDS SUMMARY | 2024-10-08 01:37 | XMS_ITS | Encounter Summary ---
Author Organization [facility] Address [address] [place] [id number] Care Team Providers Care Software Quality Assurance Specialist Name Role Phone Unavailable Primary Care Provider Unavailabl e Encounter Details Date Type Department Care Team (Late st Contact Info) Description 09/14/2019 Lab Requisition [facility] Pathology & [place] [address] Unknown, Provider, MD Social History Tobacco Use Types Packs/Day Years Used Date Smoking Tobacco: Never Assessed Sex and Gender Information Value Date Recorded Sex Assigned at Not on file Legal Sex Male 11:51 EST Gender Identity Not on file Sexual Orientation Not on file documented as of this encounter Plan of Treatment Not on file documented as of this encounter Procedures Procedure Name Priority Date/Time Associated Diagnosis Comments PSA TOTAL, DIAGNOSTIC Routine 09/13/2019 8:55 EST documented in this encounter Results * PSA TOTAL, DIAGNOSTIC (09/13/2019 8:55 EST) PSA 3.5 0.0 - 4.5 ng/mL 09/17/2019 10:18 EST [facility] Blood VENOUS BLOOD / Unknown 09/13/2019 8:55 EST 09/14/2019 15:53 EST Narrative [facility] - 09/17/2019 10:18 EST NOTE: Serum PSA concentration should not be interpreted as absolute evidence for the presence or absence of malignant disease. Assayed on Siemens ADVIA Centaur XPT using chemiluminescent technology.??Values obtained by using different assay methods cannot be used interchangeably. us Provider Unknown MD CHEMISTRY & BLOOD GAS ORDERA BLES Final Result [facility] [address] [id number] documented in this encounter Visit Diagnoses Not on filedocumented in this encounter
--- OUTSIDE RECORDS SUMMARY | 2024-10-08 01:37 | XMS_ITS | Referral Summary ---
Author Organization [facility] Address [address] [place] [address] Care Team Providers Care Facilities Maintenance Supervisor Name Role Phone Unavailable Primary Care Provider Unavailabl e Social History Tobacco Use Types Packs/Day Years Used Date Smoking Tobacco: Never Assessed Interpersonal Safety Answer Date Record ed Physically Hurt Never 07/29/2020 Verbally Threaten Not on file 07/29/2020 Sex and Gender Information Value Date Recorded Sex Assigned at Not on file Legal Sex Male 11:51 EST Gender Identity Not on file Sexual Orientation Not on file Plan of Treatment Not on file
--- OUTSIDE RECORDS SUMMARY | 2024-10-08 01:37 | XMS_ITS | Clinical Summary ---
Author Organization [facility] Address [address] [place] [address] Care Team Providers Care Creative Writing Professor Name Role Phone Unavailable Primary Care Provider [...] Orientation Not on file Plan of Treatment Health Maintenance Due Date Last Done Comments Hepatitis C Screen 1955 Fall Risk Screening 2021 COVID-19 Vaccine (2023- season) 2024 RSV Immunization ( o r 60+ Years) (1 - 1-dose 75+ series) 2031
--- OUTSIDE RECORDS SUMMARY | 2024-10-08 01:37 | XMS_ITS | Encounter Summary ---
Author Organization [facility] Address [address] [place] [address] Care Team Providers Care News Clipping Cutter Name Role Phone Unavailable Primary Care Provider Unavailabl e Encounter Details Date Type Department Care Team (Late st Contact Info) Description 02/03/2023 Lab Requisition [facility] Pathology & Laboratory Medicine - [facility] [address] [place] [address] Outr Resulting Lab, Provider Social History Tobacco [...] Associated Diagnosis Comments PSA TOTAL, DIAGNOSTIC Routine 02/03/2023 8:46 EDT documented in this encounter Results * (ABNORMAL) PSA TOTAL, DIAGNOSTIC (02/03/2023 8:46 EDT) PSA 6.3(H) <=4.5 ng/mL 02/03/2023 22:56 EDT [facility] Blood VENOUS BLOOD / Unknown 02/03/2023 8:46 EDT 02/03/2023 22:03 EDT Narrative [facility] - 02/03/2023 22:56 EDT NOTE: Serum PSA concentration should not be interpreted as absolute evidence for the presence or absence of malignant disease. Assayed on Siemens ADVIA Setupaur XPT using chemiluminescent technology.??Values obtained by using different assay methods cannot be used interchangeably. us Provider Outr Resulting Lab CHEMISTRY & BLOOD GA S ORDERABLES Final Result [facility] [address] [place] [address] documented in this encounter Visit Diagnoses Not on filedocumented in this encounter
--- OUTSIDE RECORDS SUMMARY | 2024-10-08 01:37 | XMS_ITS | Encounter Summary ---
Author Organization [facility] Address [address] [place] [address] Care Team Providers Care Flange Turner Name Role Phone Unavailable Primary Care Provider Unavailabl e Encounter Details Date Type Department Care Team (Late st Contact Info) Description 01/22/2021 Lab Requisition [facility] Pathology & Laboratory Medicine - [facility] [address] [place] [address] Outr Resulting Lab, Provider Social History Tobacco [...] Associated Diagnosis Comments PSA TOTAL, DIAGNOSTIC Routine 01/22/2021 8:10 EDT documented in this encounter Results * PSA TOTAL, DIAGNOSTIC (01/22/2021 8:10 EDT) PSA 4.0 0.0 - 4.5 ng/mL 01/22/2021 22:27 EDT [facility] Blood VENOUS BLOOD / Unknown 01/22/2021 8:10 EDT 01/22/2021 20:28 EDT Narrative [facility] - 01/22/2021 22:27 EDT NOTE: Serum PSA concentration should not be interpreted as absolute evidence for the presence or absence of malignant disease. Assayed on Siemens ADVIA Racer[employer]aur XPT using chemiluminescent technology.??Values obtained by using different assay methods cannot be used interchangeably. us Provider Outr Resulting Lab CHEMISTRY & BLOOD GA S ORDERABLES Final Result [facility] [address] [place] [address] documented in this encounter Visit Diagnoses Not on filedocumented in this encounter
--- OUTSIDE RECORDS SUMMARY | 2024-10-08 01:37 | XMS_ITS | Encounter Summary ---
Author Organization [facility] Address [address] [place] [address] Care Team Providers Care Contact Assembler Name Role Phone Unavailable Primary Care Provider Unavailabl e Encounter Details Date Type Department Care Team (Late st Contact Info) Description 02/25/2020 Orders Only [facility] Cardiology - [facility] [address] [facility] [place] [address] Primitivo Hadley MD [address] [facility] [address] [place] [address] Social History Tobacco Use Types Packs/Day Years Used Date Smoking Tobacco: Never Assessed Sex and Gender Information Value Date Recorded Sex Assigned at Not on file Legal Sex Male 11:51 EST Gender Identity Not on file Sexual Orientation Not on file documented as of this encounter Plan of Treatment Not on file documented as of this encounter Visit Diagnoses Not on filedocumented in this encounter
--- OUTSIDE RECORDS SUMMARY | 2024-10-08 01:37 | XMS_ITS | Encounter Summary ---
Author Organization [facility] Address [address] [place] [address] Care Team Providers Care Batteryman Name Role Phone Unavailable Primary Care Provider Unavailabl e Encounter Details Date Type Department Care Team (Late st Contact Info) Description 01/25/[address] [facility] Pathology & Laboratory Medicine - [facility] [address] [place] [address] Outr Resulting Lab, Provider Social History Tobacco [...] Associated Diagnosis Comments PSA TOTAL, DIAGNOSTIC Routine 01/25/2024 8:10 EDT documented in this encounter Results * (ABNORMAL) PSA TOTAL, DIAGNOSTIC (01/25/2024 8:10 EDT) PSA 8.3(H) <=4.5 ng/mL 01/25/2024 23:26 EDT [facility] Blood VENOUS BLOOD / Unknown 01/25/2024 8:10 EDT 01/25/2024 21:50 EDT Narrative [facility] - 01/25/2024 23:26 EDT NOTE: Serum PSA concentration should not be interpreted as absolute evidence for the presence or absence of malignant disease. Assayed on Siemens ADVIA Soluble Systemsaur XPT using chemiluminescent technology.??Values obtained by using different assay methods cannot be used interchangeably. us Provider Outr Resulting Lab CHEMISTRY & BLOOD GA S ORDERABLES Final Result [facility] [address] [place] [id number] documented in this encounter Visit Diagnoses Not on filedocumented in this encounter
[2024-10-08 19:03] LABS: PSA, Diagnostic 9.5 ng/mL (<=4.5)
== END 2024-10-08 01:24 | disposition home or self-care (01) ==
PROVIDERS: Visit Provider Nurse Practitioner Gerontology
DX: R97.20 Elevated prostate specific antigen [PSA] (principal)
CPT/HCPCS: 36415; 84153

== ENCOUNTER → 2024-10-15 09:39 | Outpatient (BNVA) | payer MEDICARE, SELFPAY | PROVIDERS: Referring Provider Nurse Practitioner Family; Visit Provider Nurse Practitioner Gerontology ==

== ENCOUNTER 2024-10-15 11:40 | Outpatient (CLI) | payer MEDICARE, SELFPAY ==
[2024-10-15 11:36] LABS: Estimated GFR 82.49 (mL/min/1.73m2)
== END 2024-10-15 11:41 | disposition home or self-care (01) ==
LOC: LBO 11:42
PROVIDERS: Visit Provider Nurse Practitioner Gerontology
DX: R97.20 Elevated prostate specific antigen [PSA] (principal)
CPT/HCPCS: 36415; 99214; 82565

== ENCOUNTER 2025-02-01 14:47 | Outpatient (REF) | payer MEDICARE, SELFPAY ==
[2025-02-01 16:12] LABS: ALT 30 U/L (16-63); AST 18 U/L (15-37); Albumin 4.1 g/dL (3.4-5.0); Alkaline Phosphatase 86 U/L (46-116); Anion Gap 7.9 mmol/L (3-11); BUN 14 mg/dL (7-18); Bilirubin, Total 0.9 mg/dL (0.2-1.0); CO2 28.1 mmol/L (21.0-32.0); CREATININE 0.7 mg/dL (0.70-1.30); Calcium 9.1 mg/dL (8.5-10.1); Chloride 104 mmol/L (98-107); Estimated GFR 100.37 (mL/min/1.73m2); Glucose 132 mg/dL (74-106); Potassium 4.8 mmol/L (3.5-5.1); Sodium 140 mmol/L (136-145); Total Protein 7.4 g/dL (6.4-8.2)
[2025-02-01 16:39] LABS: Hemoglobin A1C 6.7 % (<5.7)
[2025-02-01 16:42] LABS: COMMENT (LAB VIEW ONLY) 142.56 mg/dL; Microalb ug/mg Crea 8.1 ug/mg Cr
== END 2025-02-01 14:48 | disposition home or self-care (01) ==
LOC: NCHCN 14:47
PROVIDERS: Visit Provider Nurse Practitioner Family
DX: E11.9 Type 2 diabetes mellitus without complications (principal); Z00.00 Encounter for general adult medical examination without abnormal findings
CPT/HCPCS: 80053; 82043; 82570; 83036

== ENCOUNTER → 2025-02-07 13:34 | Outpatient (BNVA) | payer MEDICARE, SELFPAY | PROVIDERS: Visit Provider Nurse Practitioner Gerontology | DX: R97.20 Elevated prostate specific antigen [PSA] (principal); Z80.42 Family history of malignant neoplasm of prostate | CPT/HCPCS: 99214 ==

== ENCOUNTER → 2025-02-12 08:35 | Outpatient (BNVA) | payer MEDICARE, OTHER, SELFPAY | PROVIDERS: Visit Provider Urology | DX: C61 Malignant neoplasm of prostate (principal) | CPT/HCPCS: 55700; 76872 ==

== ENCOUNTER 2025-02-12 09:45 | Outpatient (REF) | payer MEDICARE, OTHER, SELFPAY ==
--- NOTE | 2025-02-12 09:30 | PROST_PTH ---
PATIENT: Kranthi Webb LOC: [facility] U#:[id number] AGE/SX: 69/M ROOM: RE02/12/[address]: Jack Jeffery MD : [id number] BED: DIS: 02/12/2025 SPEC #: [id number] RECD: 02/12/25 12:52 STATUS: SAUNDRA REQ #: [id number] GUILLERMO: 02/12/25 09:[address]: Jack Jeffery DEPT: Surgical Specimen RECD BY: Clarice Fitzpatrick ENTERED: 02/12/25 12:53 SP TYPE: PROST OTHR DR: Unknown,Unknown Tissues: 1 - PROSTATE NEEDLE BIOPSY 2 - PROSTATE NEEDLE BIOPSY 3 - PROSTATE NEEDLE BIOPSY 4 - PROSTATE NEEDLE BIOPSY 5 - PROSTATE NEEDLE BIOPSY 6 - PROSTATE NEEDLE BIOPSY 7 - PROSTATE NEEDLE BIOPSY 8 - PROSTATE NEEDLE BIOPSY 9 - PROSTATE NEEDLE BIOPSY 10 - PROSTATE NEEDLE BIOPSY 11 - PROSTATE NEEDLE BIOPSY 12 - PROSTATE NEEDLE BIOPSY Procedures: GROSS AND MICRO LEVEL 4 Comments: [id number]
== END 2025-02-12 09:46 | disposition home or self-care (01) ==
LOC: LBN 09:45
PROVIDERS: Visit Provider Urology
DX: C61 Malignant neoplasm of prostate (principal); R97.20 Elevated prostate specific antigen [PSA]
CPT/HCPCS: 88305

== ENCOUNTER → 2025-03-01 14:47 | Outpatient (BNVA) | payer MEDICARE, OTHER, SELFPAY | PROVIDERS: Visit Provider Urology | DX: C61 Malignant neoplasm of prostate (principal) | CPT/HCPCS: 99214 ==

== ENCOUNTER → 2025-05-17 08:15 | Outpatient (BNVA) | payer MEDICARE, OTHER, SELFPAY | PROVIDERS: Visit Provider Physician Assistant | DX: M17.12 Unilateral primary osteoarthritis, left knee (principal) | CPT/HCPCS: 20610; J1010 ==

== ENCOUNTER 2025-06-05 04:00 | Outpatient (CLI) | payer MEDICARE, OTHER, SELFPAY ==
[2025-06-05 19:52] LABS: PSA, Diagnostic 4.2 ng/mL (<=4.5)
== END 2025-06-05 04:01 | disposition home or self-care (01) ==
LOC: LBO 04:00
PROVIDERS: Visit Provider Urology
DX: C61 Malignant neoplasm of prostate (principal)
CPT/HCPCS: 36415; 84153

== ENCOUNTER → 2025-06-14 10:07 | Outpatient (BNVA) | payer MEDICARE, OTHER, SELFPAY | PROVIDERS: PCP Physician Assistant Medical; Referring Provider Physician Assistant Medical; Visit Provider Urology | DX: C61 Malignant neoplasm of prostate (principal) | CPT/HCPCS: 99213 ==